=== PATIENT | female | born 1945 | race Two or more races ===

== ENCOUNTER 2021-12-02 00:52 | Day surgery (SDC) | payer MEDICARE, MEDICAID, SELFPAY ==
[2021-11-25 11:01] VITALS: BMI 26.3
--- NOTE | 2021-11-25 11:05 | PC.NURSE ---
Report to the Outpatient Waiting Room, entrance under the green pavilion located off [facility], at time _0700_ on date _12/02/21_. OR Time: _0900_. - You and your visitor will be asked to self-screen and do not enter if you have any COVID symptoms. - Only one visitor and NO children visitors are allowed at this time. - The patient visitor is requested to leave or wait in car when not with patient due to restrictions. - A mask is required within the hospital. Patients may have clear liquids (water, carbonated beverages, clear teas, apple juice) until 3 hours prior to surgery (0600 AM) with a maximum of 20 ounces. - No food from midnight until time of surgery Take the following medications with a SIP of water the morning of surgery: __CARVEDILOL__ Medications to discontinue per DR. BOYER - _ASPIRIN INSTRUCTED__ Please no make-up, nail romanian, hairspray, perfume, deodorant, or body powder the day of surgery. No jewelry (including any body piercings) or valuables the day of surgery, leave them at home. Please take a shower or bath the night before, or the morning of, surgery with an antibacterial soap. Wear comfortable, loose fitting clothing. - Jewelry must be removed prior to entering the operating room. Rings and piercings that are not removed may be cut off. - The hospital will not accept responsibility for valuables. - Please leave all valuables, including medications, at home the day of surgery. If you are going home after surgery, a licensed local city driver must drive you home. - NO public transportation without another adult. - We recommend that an adult stay with you for 24 hours following discharge. - We also recommend that you do not drive, make important decision, drink alcoholic beverages, or take any drugs that were not prescribed by your health care provider for at least 24 hours after your discharge time. Follow any additional instructions given to you from your surgeon. If you or anyone in your household have experienced Covid symptoms in the past week, please notify your surgeon or the nurse liaison at the phone number below for possible testing. Telephone instructions given to _PT'S SON (SONAL)_and asked if any additional questions and then verbalized understanding. Patient advised to call surgeon office or pre surgery nurse liaison [phone] if any additional questions.
--- NOTE | 2021-12-01 14:01 | P.PNAN_ITS ---
Anes - Initial Pre Proc Eval Procedure: Operation Date: 12/02/21 09:00 Proposed Procedures p Cystoscopy, Urethral Dilation, Possible Bladder Biopsy - Jarrett Carrion MD Date/Time: 12/01/21 14:01 Surgeon: Jarrett Carrion MD Pre Op Diagnosis: urethral meatal stenosis Patient Data Age: 76 Gender: F Height: 1.5 m Weight: 59.09 kg Allergies Allergy/AdvReac Type Severity Reaction Status Date / Time atorvastatin [From Lipitor] Allergy Severe Anaphylaxis Verified 12/02/21 07:52 Home Medications Medication Instructions Recorded Confirmed Type alendronate 35 mg tablet 35 mg PO WEEKLY 11/25/21 11/25/21 History amlodipine 5 mg tablet 5 mg HS 11/25/21 12/02/21 History aspirin 81 mg capsule 81 mg PO DAILY 11/25/21 12/02/21 History carvedilol 12.5 mg tablet 12.5 mg BID 11/25/21 12/02/21 History losartan 100 1 tablet QAM 11/25/21 12/02/21 History mg-hydrochlorothiazide 25 mg tablet rosuvastatin 5 mg tablet 2.5 mg HS 11/25/21 12/02/21 History Patient hx anesthesia problems: none Family hx anesthesia problems: none Results Review: All pre-operative results and documents have been reviewed as part of the pre- operative evaluation. [facility] Past Medical History Medical History CAD (coronary artery disease) HTN (hypertension) Hyperlipidemia Osteoarthritis Overweight (BMI 25.0-29.9) Surgical History Surgical History History of coronary artery stent placement Social History Social History Smoking status: Never smoker Second hand tobacco smoke exposure: No Alcohol intake: never Substance use: never Substance use type: does not use Living arrangements: with family Additional living arrangements comments: PT LIVES WITH SON SONAL Spiritual care concerns: No Anes - Eval Final PreProcedure Day of Procedure 12/01/21 14:01 Patient weight: overweight Heart: regular rate and rhythm Lungs: clear to auscultation and normal air movement Airway: Mallampati scale class II Neurological: alert and oriented Last oral intake: >/= 8 hours ASA classification: III Emergent: no Anesthetic plan: proceed Anesthesia type and monitoring: general GIVS and LMA Results Review: All pre-operative results and documents have been reviewed as part of the pre- operative evaluation. Informed Consent: The patient's anesthetic plan and its attendant risks and benefits were discussed with the patient/family/POA. Questions were solicited and answers provided to the satisfaction of the patient/family/POA.
--- NOTE | 2021-12-02 07:26 | PM.IMHP ---
H&P: HPI History of Present Illness Date/Time: 12/02/21 07:26 Chief Complaint: Urinary symptoms Narrative: 76-year-old with recurrent symptoms of bladder infection. Sometimes cultures are negative. She could not undergo office cystoscopy due to discomfort and urethral stenosis. She is here today for cystoscopy and urethral dilation Review of Systems Review of Systems: All systems reviewed & are unremarkable except as noted in HPI and below PMFSH Past Medical History Medical History CAD (coronary artery disease) HTN (hypertension) Hyperlipidemia Osteoarthritis Overweight (BMI 25.0-29.9) Surgical History Surgical History History of coronary artery stent placement Social History Social History Smoking status: Never smoker Second hand tobacco smoke exposure: No Alcohol intake: never Substance use: never Substance use type: does not use Living arrangements: with family Additional living arrangements comments: PT LIVES WITH SON SONAL Spiritual care concerns: No Meds Home Medications and Allergies Home Medications Medication Instructions Recorded Confirmed Type alendronate 35 mg tablet 35 mg PO WEEKLY 11/25/21 11/25/21 History amlodipine 5 mg tablet 5 mg HS 11/25/21 11/25/21 History aspirin 81 mg capsule 81 mg PO DAILY 11/25/21 11/25/21 History carvedilol 12.5 mg tablet 12.5 mg BID 11/25/21 11/25/21 History losartan 100 1 tablet QAM 11/25/21 11/25/21 History mg-hydrochlorothiazide 25 mg tablet rosuvastatin 5 mg tablet 2.5 mg HS 11/25/21 11/25/21 History Allergies Allergy/AdvReac Type Severity Reaction Status Date / Time atorvastatin [From Lipitor] Allergy Anaphylaxis Verified 11/25/21 10:41 Exam Narrative: No acute distress Atrophic vaginitis Normal breathing Assessment and Plan Assessment and plan (1) Meatal stenosis: Status: Acute Assessment and Plan: Urethral dilation, cystoscopy. I will deal with whatever bladder pathology found if present. Understands risks of bleeding, infection, damage to the urinary tract. Agrees to proceed
--- NOTE | 2021-12-02 07:27 | WPDHPUPDATE1 ---
History and Physical Update Update Date/Time: 12/02/21 07:27 History and Physical has been reviewed, including an updated exam of the patient. There are NO changes in the patient's condition. Risks, benefits, and alternatives have been discussed and questions answered. Patient agrees to proceed with procedure.
[2021-12-02 07:35] VITALS: BP 165/51; PULSE 48; RESP 16; TEMP 36.2; O2SAT 100
[2021-12-02] MEDS: LACTATED RINGERS 1,000 ML 30 ML IV CONT (08:12)
[2021-12-02] MEDS: ceFAZolin 2 GM/D5W 50 ML 2 GM/50 ML BAG IVPB (08:58)
[2021-12-02] MEDS: LIDOCAINE HCL 2% GEL UROJET 10 ML PKG MUCOUS MEM (09:11)
[2021-12-02 09:24] VITALS: BP 144/63; PULSE 51; RESP 12; O2SAT 100
--- NOTE | 2021-12-02 09:27 | P.OP_ITS ---
Procedure Note - Detailed Date of Procedure 12/02/21 Pre-op Diagnosis urethral meatal stenosis Post-op Diagnosis Same Procedure Performed Urethral dilation, cystoscopy Surgeon Jarrett Carrion MD Anesthesia MAC Indications This is a patient with symptoms of urinary tract infection with negative cultures. I am unable to perform an office cystoscopy due to meatal stenosis. She is here for the above. Findings Tight meatal stenosis. Dilated to 26 Micronesian. Normal cystoscopy Description of Procedure She has correctly identified. Informed consent obtained. She from the operating room. She was given MAC anesthesia she was prepped and draped sterile fashion. She was given appropriate perioperative antibiotics. A time-out performed. She has a rectocele on exam with atrophic vaginitis. There is definite meatal stenosis. It was somewhat difficult even pass a 12 Micronesian sound. I serially dilated the urethra to 26 Micronesian. I applied a Uro jet. I then performed cystoscopy. Her bladder and urethra was without internal abnormalities. No tumors, no stones, no ulcers, ureteral orifices were normal. I drained her bladder. She was awakened and transferred to PACU stable condition Estimated Blood Loss 0 Drains No Pathology None sent Complications No immediate complications Condition Stable Disposition PACU
[2021-12-02 09:55] VITALS: BP 164/56; PULSE 52; RESP 14; O2SAT 100
[2021-12-02] MEDS: fentaNYL CITRATE INJ (*CRX) 100 MCG/2 ML VIAL 25 MCG IV PUSH (09:59)
[2021-12-02 10:25] VITALS: BP 161/96; PULSE 50; RESP 16; O2SAT 100
== END 2021-12-02 10:55 | disposition home or self-care (01) ==
PROVIDERS: PCP Hospitalist; Visit Provider Urology
PROC: 0TBB8ZX Excision of Bladder, Via Natural or Artificial Opening Endoscopic, Diagnostic (ICD-10-PCS; CPT 52204; principal; 2021-12-02 09:00)
DX: N35.92 Unspecified urethral stricture, female (principal); N81.6 Rectocele; N95.2 Postmenopausal atrophic vaginitis; I25.10 Atherosclerotic heart disease of native coronary artery without angina pectoris; I10 Essential (primary) hypertension; E78.5 Hyperlipidemia, unspecified
CPT/HCPCS: 52281; A9270; J0690; J2704; J3010; J7120